=== PATIENT | male | born 1995 | race African-American/Black ===

== ENCOUNTER 2017-03-10 20:57 | Emergency (ER) | payer SELFPAY ==
--- NOTE | 2017-03-10 22:37 | RAD ---
LUMBAR SPINE TWO VIEWS: History: Injury. Comparison: None. FINDINGS: Five non-rib bearing lumbar type vertebrae. Minimal levo scoliosis. Mild degenerative disc space narrowing at L5-S1 posteriorly. Paraspinal soft tissues are unremarkable. IMPRESSION: No acute abnormalities of the lumbar spine. POS: HOME
--- NOTE | 2017-03-10 22:39 | CT ---
CT CERVICAL SPINE WITHOUT CONTRAST: History: Injury. Comparison: None. FINDINGS: The occipital condyles are normal. The odontoid process is intact. Occipital condyles are intact. No acute fracture or malalignment of the cervical spine. Paraspinal soft tissues are unremarkable. Radha ng apices are clear. IMPRESSION: No acute fracture or malalignment of the cervical spine. POS: HOME
--- NOTE | 2017-03-10 22:56 | CT ---
CT BRAIN WITHOUT CONTRAST: History: Injury. Comparison: None. FINDINGS: There is a scalp laceration and contusion near the vertex. Air fluid level upper maxillary sinus. No calvarial fracture is appreciated. No acute territorial infarct or hemorrhage. No midline shift or mass effect. Ventricular size and ext raaxial CSF spaces are normal. IMPRESSION: 1. No acute intracranial abnormality. 2. Left parietal soft tissue contusion and laceration with subcutaneous gas without underlying calvar ial fracture. POS: HOME
[2017-03-10] MEDS ORDERED: HYDROcodone/Acetaminophen 10/325 mg Tablet ONE (23:15)
== END 2017-03-10 23:30 | disposition home or self-care (01) ==
LOC: ERS 20:57
DX: S01.01XA Laceration without foreign body of scalp, initial encounter (principal); S13.4XXA Sprain of ligaments of cervical spine, initial encounter; S30.0XXA Contusion of lower back and pelvis, initial encounter; W21.11XA Struck by baseball bat, initial encounter
CPT/HCPCS: 12002; 70450; 72100; 72125; 99406

== ENCOUNTER 2020-04-20 15:30 | Emergency (ER) | payer SELFPAY ==
[2020-04-20 22:42] LABS: SARS-CoV-2 PCR by NAA DETECTED (NotDetected)
== END 2020-04-20 15:40 | disposition home or self-care (01) ==
LOC: ERS 15:30
DX: U07.1 COVID-19 (principal); F17.200 Nicotine dependence, unspecified, uncomplicated
CPT/HCPCS: 87635; 99284; U0003; U0005